=== PATIENT | female | born 1960 | race Caucasian/White ===

== ENCOUNTER 2020-05-06 09:38 | Outpatient (CLI) | payer OTHER, SELFPAY ==
--- NOTE | ~2020-05-06 | US_ITS ---
EXAMINATION:US venous doppler LE RT INDICATION:Right calf pain and swelling TECHNIQUE: Multiple grayscale, color flow and Doppler images of the right lower extremity deep venous systems were obtained and reviewed. COMPARISON:07/07/2012 FINDINGS: The common femoral, superficial femoral and popliteal veins demonstrate normal respiratory variation, augmentation and compressibility. Color flow is also seen within the posterior tibial, pe roneal, greater saphenous and profunda veins. IMPRESSION: 1: No lower extremity deep venous thrombosis. Reviewed, dictated and finalized at location B.
== END 2020-05-06 09:39 | disposition home or self-care (01) ==
PROVIDERS: Visit Provider Podiatrist Foot & Ankle Surgery
DX: M79.89 Other specified soft tissue disorders (principal)
CPT/HCPCS: 93971

== ENCOUNTER 2020-08-22 14:26 | Emergency (ER) | payer OTHER, SELFPAY ==
--- NOTE | ~2020-08-22 | CT_ITS ---
EXAMINATION: CTA chest PE protocol DATE: 08/22/2020 15:42 INDICATION: Shortness of breath. COVID positive. TECHNIQUE: Computed tomography (CT) pulmonary angiogram of the chest was performed with 100 mL Omnipa que-350 intravenous contrast. Additional 3D reconstructions utilizing coronal maximum intensity proje ction (MIP) were performed. Automated exposure control and iterative reconstruction technique were em ployed. The dose-length product was 225.87 mGy-cm. COMPARISON: None FINDINGS: Excellent contrast opacification of the pulmonary arteries. There is mild streak artifact from dense contrast in the superior vena cava and right atrium. Mild scattered respiratory motion artifact at th e lung bases which does not significantly limit evaluation. No pulmonary embolism. Bilateral patchy g roundglass opacities most prominent in the dependent bilateral lower lobes with appearance most suspi cious for COVID pneumonia. No pleural effusion or pneumothorax. Heart size is normal. No pericardial effusion. Thoracic aorta is normal in caliber with no dissection. No pathologically enlarged thoracic lymphadenopathy. A few small calcified gallstones in the dependent aspect of the normal-appearing ga llbladder. No wall thickening or pericholecystic inflammatory change to suggest acute cholecystitis. Mild pectus excavatum. Bones are otherwise unremarkable. IMPRESSION: 1. No pulmonary embolus. 2. Patchy groundglass opacities most prominent in the bilateral lower lobes with appearance most sugg estive of COVID pneumonia. 3. Cholelithiasis. Reviewed, dictated and finalized at location A. IMPRESSION: 1. No pulmonary embolus. 2. Patchy groundglass opacities most prominent in the bilateral lower lobes wit h appearance most suggestive of COVID pneumonia. 3. Cholelithiasis.
--- NOTE | ~2020-08-22 | XR_ITS ---
EXAMINATION: XR chest 1V portable INDICATION: Chest pain, COVID 19 positive TECHNIQUE: Portable AP chest at 1432 hours COMPARISON: 11/26/2018 FINDINGS: There are patchy airspace opacities of the mid and lower lung zones. Scarring is noted in t he lung apices. There is no pleural effusion or pneumothorax. The cardiomediastinal silhouette is nor mal. IMPRESSION: 1. Airspace opacities of the mid and lower lung zones, consistent with COVID 19 pneumonia given patie nt's clinical history. Reviewed, dictated and finalized at location A. IMPRESSION: 1. Airspace opacities of the mid and lower lung zones, consistent with COVID 19 pneumonia given patient's clinical history.
--- NOTE | 2020-08-22 14:27 | ECG_ITS ---
Measurements Intervals [place] Rate: 78 P: 57 VT: 191 QRS: 12 QRSD: 81 T: 76 QT: 363 QTc: 415 Interpretive Statements SINUS RHYTHM BASELINE ARTIFACT- II, III, AVF, V1, V3-V6 NORMAL ECG Electronically Signed On 08-22-2020 18:01:06 CDT by Ilya Pettit D.O.
[2020-08-22 14:29] VITALS: BP 144/93; PULSE 80; RESP 18; TEMP 36.8; O2SAT 96
--- NOTE | 2020-08-22 14:34 | ED.CHESTPAIN ---
HPI - Chest Pain General Chief Complaint: Chest Pain Stated Complaint: covid +/chest pain. r/o dvt Time Seen by Provider: 08/22/20 14:34 History of Present Illness HPI narrative: 60 yo female w/ h/o DVT/PE presents to the ED for chest heaviness and SOB. She was diagnosed wtih COVID-19 1 week ago. She has had a severe cough since that time.Increasing chest heaviness and SOB over the past few days. She has h/o unprovoked PE and she says this feels similar. Additionally she has had headaches, nausea, and body aches. Related Data Home Medications Medication Instructions Recorded Confirmed No Home Medications 03/28/19 Allergies Allergy/AdvReac Type Severity Reaction Status Date / Time sumatriptan Allergy Mild THROAT Verified 08/22/20 14:51 SWELLING prochlorperazine Allergy Unknown Unknown Verified 08/22/20 14:51 [From Compazine] METOCLOPRAMIDE HCL Allergy Mild Other Uncoded 03/28/19 10:14 KETOROLAC TROMETHAMINE Allergy Unknown Other Uncoded 03/28/19 10:14 PROCHLORPERAZINE EDISYLATE Allergy Unknown Other Uncoded 03/28/19 10:14 PROCHLORPERAZINE MALEATE Allergy Unknown Other Uncoded 03/28/19 10:14 SUMATRIPTAN SUCCINATE Allergy Unknown Other Uncoded 03/28/19 10:14 Review of Systems Review of Systems: All systems reviewed & are unremarkable except as noted in HPI and below Constitutional: Constitutional: Reports as per HPI Eyes: Eyes: Reports no additional eye complaints ENT: Denies dizziness and Denies sore throat Cardiovascular: Cardiovascular: Reports as per HPI Respiratory: Respiratory: Reports as per HPI Gastrointestinal: Gastrointestinal: Reports as per HPI Genitourinary: Genitourinary: Reports no additional female genitourinary complaints Musculoskeletal: Musculoskeletal: Reports as per HPI Neurologic: Reports as per HPI [facility] Past Medical History Medical History Chondromalacia of right patellofemoral joint Iliotibial band syndrome of right side Pulmonary embolism Shortness of breath SVT (supraventricular tachycardia) Tarsal tunnel syndrome of both lower extremities Vision abnormalities Weight gain Surgical History Surgical History History of carpal tunnel release Family History Family History Other Arthritis Cancer Diabetes mellitus Heart disease Hypertension Nerve disorder Parkinson disease Social History Social History Smoking status: Never smoker Alcohol intake: current Alcohol use details: Occasional Gender identity (if verbalized by the patient): Female Exam Const: General: healthy appearing, no acute distress and alert Orientation/consciousness: patient oriented x3 HENMT: Head: normal to inspection Neck: Neck: normal visual inspection Resp: Effort & Inspection: normal respiratory effort Auscultation: crackles bilateral in the lower lung deutsch Cardio: Jugular venous distension: no JVD Rate: regular rate Rhythm: regular rhythm Heart sounds: no murmurs GI: Inspection: non-distended GI Palp: Yes Soft to palpation and No Tenderness to palpation present (GI) Skin: General skin exam: normal color Neuro: General: patient oriented x3 and moves all extremities Speech: normal speech Extrem: General: normal to inspection and no edema Other: No calf tenderness Psych: Appearance: well kempt Affect: normal affect Course Vital Signs Vital signs: Vital Signs Temperature 36.8 C 08/22/20 14:29 Pulse Rate 80 08/22/20 14:29 Respiratory Rate 18 08/22/20 14:29 Blood Pressure 144/93 H 08/22/20 14:29 Pulse Oximetry 96 08/22/20 14:29 Temperature 36.8 C 08/22/20 14:29 Pulse Rate 87 08/22/20 16:38 Respiratory Rate 16 08/22/20 16:38 Blood Pressure 134/82 08/22/20 16:38 Pulse Oximetry 96 0
[2020-08-22 14:56] LABS: Basophils Percent Auto 0.2 % (0.2-1.2); Hematocrit 41.1 % (37.0-47.0); Hemoglobin 13.3 g/dL (12.0-15.0); Immature Granulocyte Absolute 0.04 K/mm3 (0.00-0.031); Immature Granulocyte Percent A 0.5 % (0-0.5); Lymphocytes Absolute Auto 0.98 K/mm3 (0.9-3.2); Lymphocytes Percent Auto 12.1 % (18.3-44.2); Mean Corpuscular HGB Conc 32.4 g/dl (32-36); Mean Corpuscular Volume 80.4 fl (80-100); Mean Platelet Volume 9.9 fl (7.4-10.4); Monocytes Absolute Auto 0.2 K/mm3 (0.1-0.6); Neutrophils Absolute Auto 6.8 K/mm3 (1.3-6.7); Neutrophils Percent Auto 84.2 % (45.5-73.1); Platelet Count Result 232 k/mm3 (150-375); Red Blood Count 5.11 M/mm3 (4.2-5.4); Red Cell Distribution Width 13.4 % (11.5-14.5); White Blood Count 8.1 K/mm3 (4.5-10.0)
[2020-08-22 15:06] LABS: Anion Gap 9 mmol/L (8-16); Blood Urea Nitrogen 13 mg/dL (7-17); Calcium 9.3 mg/dL (8.4-10.2); Carbon Dioxide 25 mmol/L (22-30); Chloride 105 mmol/L (98-107); Estimated CRCL calculation 97 ml/min; Estimated Glomerular Filt Rate > 60; Glucose 142 mg/dL (65-110); Potassium 4.4 mmol/L (3.4-5.0); Sodium 139 mmol/L (137-145)
[2020-08-22 15:09] LABS: INR 0.8; Prothrombin Time 11.3 Seconds (11.1-14.7)
[2020-08-22 15:18] LABS: Troponin I < 0.012 ng/mL (0.000-0.034)
[2020-08-22 16:38] VITALS: BP 134/82; PULSE 87; RESP 16; O2SAT 96
== END 2020-08-22 16:40 | disposition home or self-care (01) ==
PROVIDERS: Emergency Provider Emergency Medicine
DX: U07.1 COVID-19 (principal); J12.82 Pneumonia due to coronavirus disease 2019; Z86.711 Personal history of pulmonary embolism; K80.20 Calculus of gallbladder without cholecystitis without obstruction
CPT/HCPCS: 36415; 71045; 71275; 80048; 84484; 85025; 85610; 85730; 93005; 99284; Q9967

== ENCOUNTER → 2020-12-09 07:37 | Outpatient (CLI) | payer OTHER, SELFPAY ==
--- NOTE | ~2020-12-09 | XR_ITS ---
EXAMINATION: XR knee RT 3V DATE: 12/09/2020 08:07 INDICATION: Right knee pain TECHNIQUE: Three views of the right knee were obtained. COMPARISON: 03/28/2019 FINDINGS: Alignment is normal. No fracture or osteochondral lesion. There is mild tricompartmental os teoarthritis characterized by tiny marginal osteophytes. No joint effusion/synovitis. Soft tissues a re unremarkable. IMPRESSION: 1. Mild osteoarthritis without acute osseous abnormality. Reviewed, dictated and finalized at location B.
--- NOTE | ~2020-12-09 | XR_ITS ---
EXAMINATION: XR hip RT 2V w AP pelvis INDICATION: Right hip pain TECHNIQUE: AP view the pelvis and two views of the right hip are obtained. COMPARISON: None available FINDINGS: Bone alignment is normal. There is no fracture. There are phleboliths of the pelvis. Mild o steitis pubis is noted. IMPRESSION: 1. No acute osseous abnormality. Reviewed, dictated and finalized at location B.
== END ==
PROVIDERS: PCP Family Medicine; Visit Provider Family Medicine
DX: M25.561 Pain in right knee (principal); M17.11 Unilateral primary osteoarthritis, right knee
CPT/HCPCS: 73502; 73562

== ENCOUNTER 2021-02-24 09:52 | Outpatient (CLI) | payer OTHER, SELFPAY ==
--- NOTE | 2021-02-24 | ECG_ITS ---
Measurements Intervals [place] Rate: 76 P: 69 MI: 195 QRS: 50 QRSD: 86 T: 76 QT: 384 QTc: 432 Interpretive Statements SINUS RHYTHM MINIMAL Q WAVES- ANTEROLAT/HIGH LAT LEADS BASELINE ARTIFACT- I, III, AVL BORDERLINE ECG Electronically Signed On 02-24-2021 10:43:45 REGISTERED PUBLIC HEALTH NURSE by Ilya Pettit D.O.
== END 2021-02-24 09:53 | disposition home or self-care (01) ==
LOC: ANHCARD 09:56
PROVIDERS: PCP Family Medicine; Visit Provider Podiatrist Foot & Ankle Surgery
DX: R03.0 Elevated blood-pressure reading, without diagnosis of hypertension (principal)
CPT/HCPCS: 93005

== ENCOUNTER → 2021-04-25 08:47 | Outpatient (CLI) | payer OTHER, SELFPAY ==
--- NOTE | ~2021-04-25 | US_ITS ---
EXAMINATION: US thyroid EXAM DATE: 04/25/2021 09:58 INDICATION: Nontoxic goiter, unspecified. TECHNIQUE: Multiple grayscale and Doppler images of the thyroid were obtained (by a technologist who performed the scan) and subsequently reviewed. Individual nodules and recommendations may be reporte d in accordance with TI-RADS system as designated by the 2017 ACR White Paper TI-RADS committee. The re is no prior study for comparison. FINDINGS: The right thyroid lobe measures 4.4 x 1.7 x 1.9 cm, the left measuring 5.4 x 1.0 x 2.1 cm. Mildly dif fusely heterogeneous thyroid echogenicity. Left thyroid lobe category TR 4 measuring 1.5 x 0.8 x 0.9 cm. This 1.5 cm is the size threshold for r ecommending ultrasound-guided FNA. Right thyroid lobe category TR 4 nodule measuring up to 6 mm. IMPRESSION: Several thyroid nodules, largest in the left thyroid lobe could be considered for ultraso und-guided FNA. Reviewed, dictated and finalized at location G. IMPRESSION: Several thyroid nodules, largest in the left thyroid lobe could be considered for ultrasound-guided FNA.
== END ==
PROVIDERS: PCP Family Medicine; Visit Provider Internal Medicine Endocrinology, Diabetes & Metabolism
DX: E04.2 Nontoxic multinodular goiter (principal)
CPT/HCPCS: 76536

== ENCOUNTER 2021-05-26 10:05 | Outpatient (CLI) | payer OTHER, SELFPAY ==
--- NOTE | ~2021-05-26 | US_ITS ---
EXAMINATION: US venous doppler LE RT DATE: 05/26/2021 10:35 INDICATION: Right lower limb pain and swelling. Chest pain. TECHNIQUE: Grayscale ultrasound images without and with compression and Doppler ultrasound images of the right lower extremity veins were obtained. COMPARISON: 05/06/2020 FINDINGS: The visualized portions of right common femoral vein, profunda (deep) femoral vein, femoral vein, pop liteal vein, peroneal trunk, posterior tibial veins, peroneal veins, gastrocnemius vein and greater s aphenous vein outflow are patent. IMPRESSION: 1. No deep venous thrombosis in the right lower limb. Reviewed, dictated and finalized at location A.
== END 2021-05-26 10:06 | disposition home or self-care (01) ==
LOC: ANHIMG 10:08
PROVIDERS: PCP Family Medicine; Visit Provider Podiatrist Foot & Ankle Surgery
DX: M79.661 Pain in right lower leg (principal)
CPT/HCPCS: 93971

== ENCOUNTER → 2021-06-01 09:17 | Outpatient (CLI) | payer OTHER, SELFPAY ==
--- NOTE | ~2021-06-01 | CT_ITS ---
EXAMINATION: CTA chest PE protocol DATE: 06/01/2021 10:00 INDICATION: Dyspnea. TECHNIQUE: Computed tomography angiography (CTA) of the chest was performed with 100 mL Omnipaque-350 intravenous contrast timed to evaluate the pulmonary arteries. Coronal maximum intensity projection 3D-reconstructions were created by the technologist. Automated exposure control and iterative reconst ruction technique were employed. The dose-length product was 331.58 mGy-cm. COMPARISON: Chest CT 08/22/2020, 06/04/08, abdomen MRI 05/22/2008 FINDINGS: There is mild scarring at the lung apices. The lungs demonstrate dependent atelectasis. The re is mild atelectasis in lingula. No pleural effusion. The heart size is normal. No pericardial effu jason. There is no pulmonary embolus. Partially visualized is a 7.9 cm mass of left hepatic lobe that measured 4.6 cm on 06/04/2008, consistent with a hemangioma on prior MRI. There are gallstones in the gallbladder, which is normal in size. There is mild pectus excavatum. There is mild thoracic spondylo sis. IMPRESSION: 1. No pulmonary embolus. Reviewed, dictated and finalized at location A. IMPRESSION: 1. No pulmonary embolus.
[2021-06-01 09:51] LABS: Estimated Glomerular Filt Rate > 60
== END ==
PROVIDERS: PCP Family Medicine; Visit Provider Family Medicine
DX: R79.1 Abnormal coagulation profile (principal)
CPT/HCPCS: 71275; Q9967

== ENCOUNTER 2021-12-25 08:13 | Emergency (ER) | payer OTHER, SELFPAY ==
--- NOTE | 2021-12-25 08:14 | ED.GENADULT ---
HPI - General Adult General Chief complaint: Urogenital-Female Stated complaint: bladder infection Time Seen by Provider: 12/25/21 08:14 Source: patient Mode of arrival: ambulatory Limitations: no limitations History of Present Illness HPI narrative: 61-year-old female patient presents to the [facility] with complaints of urinary symptoms for the past 3 days. Patient states that when her symptoms started her symptoms were urgency, frequency and burning when urinating. Patient states she was trying to treat herself with cranberry juice or water to help with the symptoms. Patient states the symptoms got worse yesterday and she was having chills, low back pain and just overall not feeling well. Patient is type 2 diabetic that is treated with metformin. Patient states she typically does not check her sugars. Patient denies any fevers that she is aware of. Denies any confusion. Related Data Home Medications Medication Instructions Recorded Confirmed metformin 500 mg tablet,extended 500 mg PO DAILY 12/25/21 12/25/21 release 24 hr progesterone micronized 100 mg 100 mg PO DAILY 12/25/21 12/25/21 capsule Allergies Allergy/AdvReac Type Severity Reaction Status Date / Time prochlorperazine AdvReac Mild Muscle Verified 12/25/21 08:38 [From Compazine] Spasms sumatriptan AdvReac Mild Nausea Verified 12/25/21 08:38 Review of Systems Review of Systems: CONSTITUTIONAL: Denies fever, positive chills, denies sweats. EYES: Denies visual changes, redness, or discharge. ENT: Denies rhinorrhea, congestion, sore throat, or otalgia. CARDIOVASCULAR: Denies chest pain, palpitations, or edema. RESPIRATORY: Denies cough or dyspnea. GASTROINTESTINAL: Denies abdominal pain, positive nausea, denies vomiting, or diarrhea. GENITOURINARY: Positive dysuria denies hematuria. SKIN: Denies rash or itching. MUSCULOSKELETAL: Positive low back pain, denies joint pain, or myalgia. NEUROLOGIC: Denies headache, numbness, or weakness. PSYCHIATRIC: Denies anxiety or depression. [facility] Past Medical History Medical History Chondromalacia of right patellofemoral joint Chronic pelvic pain in female Iliotibial band syndrome of right side Pulmonary embolism Shortness of breath SVT (supraventricular tachycardia) Tarsal tunnel syndrome of both lower extremities Vision abnormalities Weight gain Surgical History Surgical History H/O sinus surgery H/O: hysterectomy History of bladder surgery bladder tie up History of carpal tunnel release Family History Family History Grandparent Breast cancer Other Arthritis Cancer Diabetes mellitus Heart disease Hypertension Nerve disorder Parkinson disease Social History Social History Smoking status: Never smoker Alcohol intake: never Substance use: never Gender identity (if verbalized by the patient): Female Sexual Orientation (if Verbalized by the Patient): Straight or Heterosexual Comments At the time of my signature I agree with nursing past medical history, surgical, social, and family history. There is no relevant family history pertinent to the presenting complaint. Exam Narrative: GENERAL: Well-appearing, well-nourished, and in no acute distress. HEAD: Normocephalic, atraumatic. EYES: PERRLA and EOMI. ENT: Nares clear, no rhinorrhea or epistaxis. Mucous membranes moist. NECK: Supple. No lymphadenopathy CHEST: Clear to auscultation. No respiratory distress. HEART: Regular rate and rhythm. No murmur heard. Normal peripheral pulses. ABDOMEN: Soft, nontender, nondistended, normal active bowel sounds. Bilateral suprapubic pain on palpation. Bilateral CVS tenderness on percussion. EXTREMITIES: Normal range of motion. No edema. SKIN: Warm, dry, no rash. NEUR
[2021-12-25 08:30] VITALS: BP 132/72; PULSE 91; RESP 16; TEMP 36.9; O2SAT 99
[2021-12-25 08:37] LABS: Glucose Point of Care 99 mg/dl (65-105)
== END 2021-12-25 08:46 | disposition home or self-care (01) ==
PROVIDERS: Emergency Provider Nurse Practitioner Family; PCP Family Medicine
DX: N39.0 Urinary tract infection, site not specified (principal); Z86.711 Personal history of pulmonary embolism
CPT/HCPCS: 81003; 82948; 87077; 87086; 87186; 99213; G0463

== ENCOUNTER 2022-01-11 09:14 | Emergency (ER) | payer OTHER, SELFPAY ==
--- NOTE | ~2022-01-11 | XR_ITS ---
XR foot RT min 3V DATE: 01/11/2022 09:39 INDICATION: Right lateral foot pain following a fall yesterday TECHNIQUE: 4 views COMPARISON: None FINDINGS: There is a small cortical avulsion fracture from the distal lateral aspect of the calcaneus , with overlying soft tissue swelling. No other fracture or dislocation, periosteal reaction or bone destruction. There is calcification along the distal Achilles tendon. IMPRESSION: Cortical avulsion fracture of distal lateral aspect of calcaneus, with overlying soft tis isabela swelling Reviewed, dictated and finalized at location B. NG NURSE IMPRESSION: Cortical avulsion fracture of distal lateral aspect of calcaneus, w ith overlying soft tissue swelling
--- NOTE | ~2022-01-11 | XR_ITS ---
XR ankle RT min 3V DATE: 01/11/2022 09:39 INDICATION: Lateral right ankle pain following a fall yesterday TECHNIQUE: 4 views COMPARISON: None FINDINGS: There is calcification along the distal Achilles tendon. No fracture or dislocation of the ankle or disruption of the ankle mortise. No periosteal reaction or bone destruction or significant soft tissue swelling is detected. IMPRESSION: No fracture or dislocation Reviewed, dictated and finalized at location B. EY HAND IMPRESSION: No fracture or dislocation
[2022-01-11 09:23] VITALS: BP 135/71; PULSE 75; RESP 16; TEMP 36.7; O2SAT 98
--- NOTE | 2022-01-11 09:35 | ED.LOWEXIN ---
HPI - Extremity Injury (Lower) General Chief Complaint: Extremity Injury, Lower Stated Complaint: Right Ankle Pain Time Seen by Provider: 01/11/22 09:35 Source: patient Mode of arrival: ambulatory Limitations: no limitations History of Present Illness HPI Narrative: Ms. Delatorre is a 61-year-old female patient presenting to the clinic today with complaints of right ankle and foot pain since last night. She reports she may have twisted her ankle and foot last night but she is unaware of what exactly happened. States that her slipper may have half way came off and she tripped. She denies falling -hitting her head or any neck pain. Related Data Home Medications Medication Instructions Recorded Confirmed metformin 500 mg tablet,extended 500 mg PO DAILY 12/25/21 12/25/21 release 24 hr Allergies Allergy/AdvReac Type Severity Reaction Status Date / Time prochlorperazine AdvReac Mild Muscle Verified 01/11/22 09:42 [From Compazine] Spasms sumatriptan AdvReac Mild Nausea Verified 01/11/22 09:42 Review of Systems Review of Systems: Pertinent positives per HPI. Patient denies any fever, chills, rash, headache, visual changes, dizziness, cough, runny nose, sore throat, shortness of breath, chest pain, palpitations, nausea, vomiting, diarrhea, constipation, abdominal pain, or any urinary issues. [facility] Past Medical History Medical History Chondromalacia of right patellofemoral joint Chronic pelvic pain in female Iliotibial band syndrome of right side Pulmonary embolism Shortness of breath SVT (supraventricular tachycardia) Tarsal tunnel syndrome of both lower extremities Vision abnormalities Weight gain Surgical History Surgical History H/O sinus surgery H/O: hysterectomy History of bladder surgery bladder tie up History of carpal tunnel release Family History Family History Grandparent Breast cancer Other Arthritis Cancer Diabetes mellitus Heart disease Hypertension Nerve disorder Parkinson disease Social History Social History Smoking status: Never smoker Alcohol intake: never Substance use: never Gender identity (if verbalized by the patient): Female Sexual Orientation (if Verbalized by the Patient): Straight or Heterosexual Comments At the time of my signature, I reviewed and agree with the nursing past medical, surgical, social, and family history. There is no relevant family history pertinent to the patient complaint. Exam Narrative: General: Well-developed, well nourished, in no apparent distress Head: Normocephalic, atraumatic. Cardio: Regular rate and rhythm, s1 and s2 normal, no murmur appreciated. Resp: Clear to auscultation bilaterally, no rhonchi, rales, wheezing or rubs. Musculoskeletal: No deformity, tenderness, bruising, and swelling to the right lateral dorsal foot /ankle, limited range of motion due to pain, pain with dorsal flexion and plantar flexion against resistance, muscle strength strong and equal, peripheral pulse strong, no cyanosis, limping gait and station Course Course Emergency Course: Portions of this record may have been created with voice recognition software. Level of Care: Express Care Visit Vital Signs Vital signs: Vital Signs Temperature 36.7 C 01/11/22 09:23 Pulse Rate 75 01/11/22 09:23 Respiratory Rate 16 01/11/22 09:23 Blood Pressure 135/71 01/11/22 09:23 Pulse Oximetry 98 01/11/22 09:23 Oxygen Delivery Room Air 01/11/22 09:23 Temperature 36.7 C 01/11/22 09:23 Pulse Rate 75 01/11/22 09:23 Respiratory Rate 16 01/11/22 09:23 Blood Pressure 135/71 01/11/22 09:23 Pulse Oximetry 98 01/11/22 09:23 Oxygen Delivery Room Air 01/11/22 09:23 Vital
== END 2022-01-11 10:05 | disposition home or self-care (01) ==
PROVIDERS: Emergency Provider Nurse Practitioner Family; PCP Family Medicine
DX: S92.034A Nondisplaced avulsion fracture of tuberosity of right calcaneus, initial encounter for closed fracture (principal); S93.411A Sprain of calcaneofibular ligament of right ankle, initial encounter; X58.XXXA Exposure to other specified factors, initial encounter; Z86.711 Personal history of pulmonary embolism
CPT/HCPCS: 73610; 73630; 99214; G0463

== ENCOUNTER → 2022-02-10 07:52 | Outpatient (CLI) | payer OTHER, SELFPAY ==
--- NOTE | ~2022-02-10 | MR_ITS ---
MRI of the brain Clinical History: Facial neurosensory disorder Technique: Axial and sagittal T1-weighted images were acquired. These were followed by axial T2-weigh rubi, diffusion weighted, gradient, and FLAIR images. Following intravenous administration of 14 cc Mu ltiHance gadolinium, T1-weighted fat-sat imaging was performed in the axial and coronal planes. Findings: No abnormal signal seen in the brain parenchyma. No acute infarct, intracranial hemorrhage, or mass lesion. Ventricles and subarachnoid spaces are unremarkable. Orbits are unremarkable. Paranasal sinuses and m astoid air cells are clear. Major intracranial flow voids appear intact. Sagittal midline structures are intact. No abnormal postcontrast enhancement identified. IMPRESSION: Unremarkable exam. Reviewed, dictated and finalized at location M. OR DIGITAL DESIGNER IMPRESSION: Unremarkable exam.
--- NOTE | ~2022-02-10 | MR_ITS ---
MRI of the orbits CLINICAL HISTORY: Facial nerve disorder TECHNIQUE: Axial T1 weighted, T1 fat sat, and T2 fat-sat images, coronal T1-weighted and T2 fat-sat i mages were acquired through the orbits. Following intravenous administration of 14 cc MultiHance gado linium, T1-weighted fat-sat imaging was performed in the axial and coronal planes. FINDINGS: Eye globes are symmetric in size and position. Extraocular muscles are unremarkable. Optic nerve sheath complexes are unremarkable. No intraorbital mass or signal abnormality seen. Optic chias m unremarkable. Paranasal sinuses and mastoid air cells are clear. No abnormal soft tissue mass identified. No abnorm al postcontrast enhancement identified. IMPRESSION: Unremarkable MRI of the orbits. Reviewed, dictated and finalized at location . [employer]ACT ASSOCIATE
== END ==
PROVIDERS: PCP Family Medicine; Visit Provider Internal Medicine Endocrinology, Diabetes & Metabolism
DX: G51.9 Disorder of facial nerve, unspecified (principal)
CPT/HCPCS: 70543; 70553; A9577

== ENCOUNTER 2022-09-14 05:51 | Emergency (ER) | payer OTHER, SELFPAY ==
[2022-09-14 05:55] VITALS: BP 152/88; PULSE 83; RESP 14; TEMP 36.7; O2SAT 100
[2022-09-14] MEDS: predniSONE 20 MG TABLET 40 MG PO (06:32)
--- NOTE | 2022-09-14 06:33 | ED.EYEPROB ---
HPI - Eye Problem General Chief complaint: Eye Problems Stated complaint: pink eye Time Seen by Provider: 09/14/22 06:01 History of Present Illness HPI Narrative: 62-year-old female presenting with bilateral eyelid swelling and itching, about a week ago she was diagnosed with pinkeye and started on eyedrops by her doctor, after several days of using the drops she was noticing more swelling and itching to her eyelids, her doctor thought this may be an allergy so she stopped the drops and put her on a different sort of eyedrops, but this time her pinkeye/irritation/discharge had largely resolved, however she was having such bad swelling to her eyelids with this new eyedrop that she came in today. She states only thing that seems to help her feel better as the prednisolone drops Related Data Home Medications Medication Instructions Recorded Confirmed metformin 500 mg tablet,extended 500 mg PO DAILY 12/25/21 09/14/22 release 24 hr moxifloxacin 0.5 % eye drops 1 drp EACH EYE TID 09/14/22 09/14/22 prednisolone acetate 1 % eye 1 drp EACH EYE BID 09/14/22 09/14/22 drops,suspension Allergies Allergy/AdvReac Type Severity Reaction Status Date / Time prochlorperazine AdvReac Mild Muscle Verified 06/06/22 08:26 [From Compazine] Spasms sumatriptan AdvReac Mild Nausea Verified 06/06/22 08:26 Review of Systems Review of Systems: CONST: No fever. HEENT: Extremely itchy and swollen eyelids SKIN: Rash to eyelids PMFSH Past Medical History Medical History Chondromalacia of right patellofemoral joint Chronic pelvic pain in female Iliotibial band syndrome of right side Pulmonary embolism Shortness of breath SVT (supraventricular tachycardia) Tarsal tunnel syndrome of both lower extremities Vision abnormalities Weight gain Surgical History Surgical History H/O sinus surgery H/O: hysterectomy History of bladder surgery bladder tie up History of carpal tunnel release Family History Family History Grandparent Breast cancer Other Arthritis Cancer Diabetes mellitus Heart disease Hypertension Nerve disorder Parkinson disease Social History Social History Smoking status: Never smoker Alcohol intake: never Substance use: never Living arrangements: with family Occupation/Education: retired Gender identity (if verbalized by the patient): Female Sexual Orientation (if Verbalized by the Patient): Straight or Heterosexual Exam Narrative: EXAMINATION OF ORGAN SYSTEMS/BODY AREAS: Constitutional: Vital signs per nursing GENERAL:[No acute distress, non-toxic appearing.] HEAD: Normal with no signs of head trauma. EYES: EOMI, slightly injected conjunctiva, no active discharge, extremely swollen edematous erythematous eyelids bilaterally ENT: Hearing grossly intact LUNGS: Nonlabored breathing. HEART: [Regular rate and rhythm] ABD: [Soft], [tender to palpation] EXT: Normal range of motion SKIN: edematous erythematous eyelids bilaterally NEURO: [Alert and oriented x 3. No gross focal sensory or strength deficits.] PSYCH: Normal affect Course Vital Signs Vital signs: Vital Signs Temperature 98.0 F 09/14/22 05:55 Pulse Rate 83 09/14/22 05:55 Respiratory Rate 14 09/14/22 05:55 Blood Pressure 152/88 H 09/14/22 05:55 Pulse Oximetry 100 09/14/22 05:55 Oxygen Delivery Room Air 09/14/22 05:55 Temperature 98.0 F 09/14/22 05:55 Pulse Rate 83 09/14/22 05:55 Respiratory Rate 14 09/14/22 05:55 Blood Pressure 152/88 H 09/14/22 05:55 Pulse Oximetry 100 09/14/22 05:55 Oxygen Delivery Room Air 09/14/22 05:55 MDM - Eye Problem MDM Narrative Medical decision making narrative: 2-year-old female presenting with bilateral eye
== END 2022-09-14 07:20 | disposition home or self-care (01) ==
PROVIDERS: Emergency Provider Emergency Medicine; PCP Family Medicine
DX: H02.89 Other specified disorders of eyelid (principal); T49.5X5A Adverse effect of ophthalmological drugs and preparations, initial encounter; Z86.711 Personal history of pulmonary embolism; Z90.710 Acquired absence of both cervix and uterus
CPT/HCPCS: 99283; J7512

== ENCOUNTER 2023-08-06 06:12 | Day surgery (SDC) | payer OTHER, SELFPAY ==
[2023-07-04 14:01] VITALS: BMI 24.6
[2023-07-27 10:15] VITALS: BMI 24.1
--- NOTE | 2023-07-31 13:54 | PM.HPGS ---
History of Present Illness History of Present Illness Consent: Risks, benefits, and alternatives have been discussed and questions answered. Patient agrees to proceed with procedure. Chief complaint: Dysphagia, Functional Dyspepsia, Constipation Narrative: Marianna Delatorre is a 63 year old female who has had trouble swallowing for years. Reports dysphagia is high up in the neck area. She has been evaluated by ENT in [place] (does not remember name) prior to Covid and nasal scope preformed with no etiology found. States dysphagia is stable with no new changes. states she does take small bites and chews her food well to avoid things getting caught. She denies any coughing or dysphagia with liquids. when she does swallow she does report increase pressure in her mid chest area. She denies any odynophagia. For the past 6 months she has had burning sensation in her stomach this is worse after eating. She denies any associated nausea or vomiting. she does report a history of reflux in the past and has tried omeprazole, Pepcid, and Nexium over the years with no relief in symptoms. She also reports a history of chronic constipation and lower abdominal bloating. she has a history of polyps. Review of Systems Review of Systems: All systems reviewed & are unremarkable except as noted in HPI and below PMFSH Past Medical History Medical History Abdominal bloating Atypical chest pain Chondromalacia of right patellofemoral joint Chronic pelvic pain in female Constipation Dysphagia Globus sensation History of colon polyps Hoarseness Iliotibial band syndrome of right side Pulmonary embolism Shortness of breath Stomach burning SVT (supraventricular tachycardia) Tarsal tunnel syndrome of both lower extremities Vision abnormalities Weight gain Surgical History Surgical History H/O eye surgery H/O sinus surgery H/O: hysterectomy History of bladder surgery bladder tie up History of carpal tunnel release Family History Family History Grandparent Breast cancer Other Arthritis Cancer Diabetes mellitus Heart disease Hypertension Nerve disorder Parkinson disease Social History Social History Smoking status: Never smoker Alcohol intake: current Drinks per week: 0 Alcohol use details: RARE Substance use: never Substance use type: does not use Current Housing: Decline to Answer Concerned About Future Housing: Decline to Answer Difficulty Paying Gas/Electric Bills: Decline to Answer Difficulty Paying for Meds: Decline to Answer Currently Unemployed: Decline to Answer Difficulty w/ Childcare or Family Care: Decline to Answer Living arrangements: with family Occupation/Education: retired Gender identity (if verbalized by the patient): Female Sexual Orientation (if Verbalized by the Patient): Straight or Heterosexual Spiritual care concerns: No Meds Home Medications and Allergies Home Medications Medication Instructions Recorded Confirmed Type metformin 500 mg tablet,extended 500 mg PO DAILY 12/25/21 08/06/23 History release 24 hr fezolinetant 45 mg tablet (Veozah) 45 mg PO DAILY 06/12/23 08/06/23 History valacyclovir 500 mg tablet 500 mg PO Q12H 06/12/23 08/06/23 History B-complex with vitamin C 1 cap PO DAILY 06/20/23 08/06/23 History aspirin 81 mg tablet,delayed 81 mg PO DAILY 06/20/23 08/06/23 History release (Adult Low Dose Aspirin) calcium phosphate,dibasic 100 1 tablet PO DAILY 07/27/23 08/06/23 History mg-vitamin D3 3 mcg tablet magnesium glycinate 100 mg tablet 100 mg PO DAILY 07/27/23 08/06/23 History turmeric 400 mg capsule 400 mg PO DAILY 07/27/23 08/06/23 History Allergies Allergy/AdvReac Type Severity Reaction Status Date / Time prochlorperaz
[2023-08-06 07:10] VITALS: BMI 24.0
[2023-08-06 07:15] LABS: Glucose Point of Care 106 mg/dl (65-105)
--- NOTE | 2023-08-06 07:42 | WPDANESEPPF ---
Anes - Initial Pre Proc Eval Procedure: Operation Date: 08/06/23 08:00 Proposed Procedures p Esophagogastroduodenoscopy - Jon Ribeiro MD s Diagnostic Colonoscopy - Jon Ribeiro MD Date/Time: 08/06/23 07:42 Surgeon: Jon Ribeiro MD Pre Op Diagnosis: Dysphagia, Functional Dyspepsia, Constipation Patient Data Age: 63 Gender: F Height: 1.7 m Weight: 69.6 kg Allergies Allergy/AdvReac Type Severity Reaction Status Date / Time prochlorperazine AdvReac Mild Muscle Verified 08/06/23 06:44 [From Compazine] Spasms Home Medications Medication Instructions Recorded Confirmed Type metformin 500 mg tablet,extended 500 mg PO DAILY 12/25/21 08/06/23 History release 24 hr fezolinetant 45 mg tablet (Veoz[place]) 45 mg PO DAILY 06/12/23 08/06/23 History valacyclovir 500 mg tablet 500 mg PO Q12H 06/12/23 08/06/23 History B-complex with vitamin C 1 cap PO DAILY 06/20/23 08/06/23 History aspirin 81 mg tablet,delayed 81 mg PO DAILY 06/20/23 08/06/23 History release (Adult Low Dose Aspirin) calcium phosphate,dibasic 100 1 tablet PO DAILY 07/27/23 08/06/23 History mg-vitamin D3 3 mcg tablet magnesium glycinate 100 mg tablet 100 mg PO DAILY 07/27/23 08/06/23 History turmeric 400 mg capsule 400 mg PO DAILY 07/27/23 08/06/23 History Laboratory Tests 08/06/23 07:06 POC Capillary Glucose 106 H mg/dl (65-105) Patient hx anesthesia problems: post op nausea/vomiting Family hx anesthesia problems: none Results Review: All pre-operative results and documents have been reviewed as part of the pre-operative evaluation. [facility] Past Medical History Medical History Abdominal bloating Atypical chest pain Chondromalacia of right patellofemoral joint Chronic pelvic pain in female Constipation Dysphagia Globus sensation History of colon polyps Hoarseness Iliotibial band syndrome of right side Pulmonary embolism Shortness of breath Stomach burning SVT (supraventricular tachycardia) Tarsal tunnel syndrome of both lower extremities Vision abnormalities Weight gain Surgical History Surgical History H/O eye surgery H/O sinus surgery H/O: hysterectomy History of bladder surgery bladder tie up History of carpal tunnel release Family History Family History Grandparent Breast cancer Other Arthritis Cancer Diabetes mellitus Heart disease Hypertension Nerve disorder Parkinson disease Social History Social History Smoking status: Never smoker Alcohol intake: current Drinks per week: 0 Alcohol use details: RARE Substance use: never Substance use type: does not use Current Housing: Decline to Answer Concerned About Future Housing: Decline to Answer Difficulty Paying Gas/Electric Bills: Decline to Answer Difficulty Paying for Meds: Decline to Answer Currently Unemployed: Decline to Answer Difficulty w/ Childcare or Family Care: Decline to Answer Living arrangements: with family Occupation/Education: retired Gender identity (if verbalized by the patient): Female Sexual Orientation (if Verbalized by the Patient): Straight or Heterosexual Spiritual care concerns: No Anes - Eval Final PreProcedure Day of Procedure 08/06/23 07:42 Patient weight: normal Heart: regular rate and rhythm Lungs: clear to auscultation Airway: Mallampati scale class II Neurological: alert and oriented Last oral intake: >/= 8 hours ASA classification: II Emergent: no Anesthetic plan: proceed Anesthesia type and monitoring: general GIVS and standard monitoring Results Review: All pre-operative results and documents have been reviewed as part of the pre-operative evaluation. Informed Consent: The patient's anesthetic plan and its attend
[2023-08-06] MEDS: LACTATED RINGERS 1,000 ML 150 ML IV CONT (07:55)
[2023-08-06 08:34] VITALS: BP 110/72; PULSE 84; RESP 15; O2SAT 98
[2023-08-06 08:44] VITALS: BP 104/73; PULSE 71; RESP 16; O2SAT 99
[2023-08-06 08:54] VITALS: BP 130/69; PULSE 67; RESP 16; O2SAT 100
--- NOTE | 2023-08-06 08:59 | WPDANESPN ---
Anes - Prog Note Post-Op Date/Time: 08/06/23 08:59 Cardiovascular status: normal Respiratory status: normal Airway patency: baseline Mental status: baseline Post-Op hydration status: normal Vital Signs: Last Vital Signs Pulse 67 08/06/23 08:54 Resp 16 08/06/23 08:54 BP 130/69 08/06/23 08:54 Pulse Ox 100 08/06/23 08:54 O2 Del Method Room Air 08/06/23 08:54 Pain Score (VAS): 0 I/O: Intake & Output 08/05/23 08/06/23 08/06/23 23:59 07:59 15:59 Intake Total 900 Balance 900 08/06/23 07:06 POC Capillary Glucose 106 H Patient Feedback: Patient satisfied with anesthetic care.
== END 2023-08-06 09:03 | disposition home or self-care (01) ==
PROVIDERS: PCP Family Medicine; Visit Provider Internal Medicine Gastroenterology
PROC: 0DJ08ZZ Inspection of Upper Intestinal Tract, Via Natural or Artificial Opening Endoscopic (ICD-10-PCS; CPT 43235; principal; 2023-08-06 08:00)
PROC: 0DJD8ZZ Inspection of Lower Intestinal Tract, Via Natural or Artificial Opening Endoscopic (ICD-10-PCS; CPT 45378; 2023-08-06 08:00)
DX: Z86.010 Personal history of colon polyps (principal); R13.19 Other dysphagia; K64.8 Other hemorrhoids; K21.9 Gastro-esophageal reflux disease without esophagitis
CPT/HCPCS: 45378; 43239

== ENCOUNTER 2023-08-06 07:00 | Outpatient (NON) | payer OTHER, SELFPAY | END 2023-08-06 07:01 | disposition home or self-care (01) | LOC: ANHLAB 08-07 07:31 | PROVIDERS: PCP Family Medicine; Visit Provider Internal Medicine Gastroenterology | DX: K21.00 Gastro-esophageal reflux disease with esophagitis, without bleeding (principal); Z87.898 Personal history of other specified conditions | CPT/HCPCS: 88305 ==

== ENCOUNTER 2023-11-21 09:02 | Emergency (ER) | payer OTHER, SELFPAY ==
[2023-11-21 09:48] VITALS: BP 130/84; PULSE 75; RESP 19; TEMP 37; O2SAT 98
--- NOTE | 2023-11-21 09:48 | ED.NECK ---
HPI - Neck Pain/Injury General Chief Complaint: Neck Pain/Injury Stated Complaint: Left Shoulder Pain Time Seen by Provider: 11/21/23 09:48 Source: patient, RN notes reviewed and old records reviewed Mode of arrival: ambulatory Limitations: no limitations History of Present Illness HPI Narrative: Patient presents with complaints of pain to the left shoulder/neck area. She reports that she woke up with this pain about 6 days ago. She has been trying ibuprofen, ice, heat, stretching. She tried to call her primary care provider and her Orthopedic, was unable to get in either 1. She presents today with complaints of increased pain with abduction of the left arm. Pain is also aggravated by turning head to the right. States that she had to sleep in a recliner last night due to pain Related Data Home Medications Medication Instructions Recorded Confirmed metformin 500 mg tablet,extended 500 mg PO DAILY 12/25/21 11/21/23 release 24 hr valacyclovir 500 mg tablet 500 mg PO Q12H 06/12/23 11/21/23 B-complex with vitamin C 1 cap PO DAILY 06/20/23 11/21/23 aspirin 81 mg tablet,delayed 81 mg PO DAILY 06/20/23 11/21/23 release (Adult Low Dose Aspirin) calcium 100 mg (as 1 tablet PO DAILY 07/27/23 11/21/23 phosphate,dibasic)-vitamin D3 3 mcg tablet magnesium glycinate 100 mg (as 100 mg PO DAILY 07/27/23 11/21/23 glycinate) tablet turmeric 400 mg capsule 400 mg PO DAILY 07/27/23 11/21/23 Allergies Allergy/AdvReac Type Severity Reaction Status Date / Time prochlorperazine AdvReac Mild Muscle Verified 11/21/23 09:20 [From Compazine] Spasms Review of Systems Review of Systems: All systems reviewed & are unremarkable except as noted in HPI and below Constitutional: Constitutional: Reports no additional constitutional complaints ENT: Reports system reviewed and no additional complaints, except as documented Cardiovascular: Cardiovascular: Reports no additional cardiovascular complaints Respiratory: Respiratory: Reports no additional respiratory complaints Gastrointestinal: Gastrointestinal: Reports no additional gastrointestinal complaints Musculoskeletal: Musculoskeletal: Reports no additional musculoskeletal complaints and Reports as per HPI [facility] Past Medical History Medical History Abdominal bloating Atypical chest pain Chondromalacia of right patellofemoral joint Chronic pelvic pain in female Constipation Dysphagia Globus sensation History of colon polyps Hoarseness Iliotibial band syndrome of right side Pulmonary embolism Shortness of breath Stomach burning SVT (supraventricular tachycardia) Tarsal tunnel syndrome of both lower extremities Vision abnormalities Weight gain Surgical History Surgical History H/O eye surgery H/O sinus surgery H/O: hysterectomy History of bladder surgery bladder tie up History of carpal tunnel release Family History Family History Grandparent Breast cancer Other Arthritis Cancer Diabetes mellitus Heart disease Hypertension Nerve disorder Parkinson disease Social History Social History Smoking status: Never smoker Alcohol intake: current Drinks per week: 0 Alcohol use details: RARE Substance use: never Substance use type: does not use Current Housing: Decline to Answer Concerned About Future Housing: Decline to Answer Difficulty Paying Gas/Electric Bills: Decline to Answer Difficulty Paying for Meds: Decline to Answer Currently Unemployed: Decline to Answer Difficulty w/ Childcare or Family Care: Decline to Answer Living arrangements: with family Occupation/Education: retired Gender identity (if verbalized by the patient): Female Sexual Orientation (if Verbalized by the Patient): Straight or Het
== END 2023-11-21 10:05 | disposition home or self-care (01) ==
PROVIDERS: Emergency Provider Nurse Practitioner Family; PCP Family Medicine
DX: M62.838 Other muscle spasm (principal); Z86.711 Personal history of pulmonary embolism; Z79.82 Long term (current) use of aspirin
CPT/HCPCS: 99213; G0463

== ENCOUNTER 2024-01-28 10:01 | Outpatient (CLI) | payer OTHER, SELFPAY ==
--- NOTE | ~2024-01-28 | US_ITS ---
EXAMINATION: US thyroid DATE: 01/28/2024 10:34 INDICATION: Frankie's thyroiditis. Goiter. Dysphagia. TECHNIQUE: Multiple ultrasound images of the thyroid were obtained. COMPARISON: Thyroid ultrasound 04/25/2021 FINDINGS: The right thyroid lobe measures 4.7 x 1.3 x 1.9 cm. The left thyroid lobe measures 5.6 x 1.1 x 2.1 c m. In the right thyroid lobe, there is a 6 mm solid, hypoechoic, wider than tall nodule with smooth margin without echogenic foci (TI-RADS TR4). In the left thyroid lobe, there is a 17 mm solid, hypoec hoic, wider than tall nodule with ill-defined margin without echogenic foci (TR4) that measured 15 mm on 04/25/21. In the left thyroid lobe, there is a 4 mm nodule. IMPRESSION: 1. Thyroid nodules. Ultrasound-guided fine-needle aspiration of the 17 mm left thyroid nodule is erin mmended. Reviewed, dictated and finalized at location A. ITECTURE INTERN IMPRESSION: 1. Thyroid nodules. Ultrasound-guided fine-needle aspiration of the 17 mm left thyroid nodule is recommended.
== END 2024-01-28 10:02 | disposition home or self-care (01) ==
PROVIDERS: PCP Internal Medicine Endocrinology, Diabetes & Metabolism; Visit Provider Internal Medicine Endocrinology, Diabetes & Metabolism
DX: E04.2 Nontoxic multinodular goiter (principal); R13.10 Dysphagia, unspecified; R09.A2 Foreign body sensation, throat
CPT/HCPCS: 76536

== ENCOUNTER 2024-02-28 12:12 | Outpatient (CLI) | payer OTHER, SELFPAY ==
--- NOTE | ~2024-02-28 | US_ITS ---
EXAMINATION: US FNA w image guidance DATE: 02/28/2024 13:21 INDICATION: Left thyroid nodule TECHNIQUE: A time-out was performed to verify the patient's name, date of , and procedure to be performed . The procedure and its benefits and risks were discussed with the patient. Risks specifically discus sed included bleeding and infection. The patient understood the risks and agreed to proceed. The neck was prepped and draped in the usual sterile manner. 3 mL 1% lidocaine was used for local anesthesia . 6 passes were made with a 25G needle into the lesion. Appropriate needle location was documented with continuous sonographic guidance. A sterile bandage was applied. There were no immediate compli cations. FINDINGS: Grayscale ultrasound images demonstrate biopsy needles advanced into a 1.5 cm solid TI RADS 4 nodule of concern at the inferior left thyroid. IMPRESSION: 1. Successful ultrasound-guided fine needle aspiration of a 1.5 cm TI RADS 4 left thyroid nodule. Reviewed, dictated and finalized at location A. ERCIAL LOAN ASSISTANT IMPRESSION: 1. Successful ultrasound-guided fine needle aspiration of a 1.5 cm TI RADS 4 l eft thyroid nodule.
--- OUTSIDE RECORDS SUMMARY | 2024-02-29 04:50 | XMS_ITS | Referral Summary ---
Author Organization [facility] Address [address] [place] [address] Care Team Providers Care Bologna Maker Name Role Phone Heydi Ulloa MD Primary Care Provider + Allergies Active Allergy Reactions Criticality Noted Date Comments Ketorolac Tromethamine Unknown 05/21/2014 Metoclopramide Other (See comments) Low 04/24/2018 Muscle spasms Neomycin-Polymyxin B-Dexameth Swelling,Eye irritation,Redness Medium 10/04/2022 Polymyxin B Sulf-Trimethoprim Swelling,Rash,Eye irritation Medium 10/04/2022 Prochlorperazine Other (See comments),Unknown Low 05/21/2014 Muscle spasms MUSCLE SPASMS Sumatriptan Anaphylaxis High Medications multivitamin tabletIndication s:Vitamin Deficiency Prevention Take 1 tablet by mouth nightly Active rizatriptan (MAXALT) 10 mg tabletIndication s:Migraine Take 1 tablet (10 mg total) by mouth once as needed for migraine May repeat in 2 hours if unresolved. Do not exceed 30 mg in 24 hours. Active ondansetron (ZOFRAN) 4 mg tablet Take 1 tablet (4 mg total) by mouth every 12 (twelve) hours as needed for nausea or vomiting Active cholecalciferol (VITAMIN D-3) 2000 unit capsule Take 1 capsule (2,000 Units total) by mouth nightly Active B sdzcefb-X-ihr-Fe -FA 106 mg iron- 1 mg tabletIndication s:Vitamin Deficiency Take 1 tablet by mouth nightly Active aspirin 81 mg enteric coated tabletIndication s:prevention of thrombosis,h/o PE, DVT in ankle Take 1 tablet (81 mg total) by mouth nightly Active metFORMIN (FORTAMET) 500 mg 24 hr tabletIndication s: pre diabetic Take 1 tablet (500 mg total) by mouth nightly Active loteprednol (LOTEMAX) 0.5 % drops,gelIndicat ions:Ocular Inflammation Administer 1 drop into both eyes as needed 3 Active MAGNESIUM GLYCINATE ORAL Take 1 tablet/capsule by mouth nightly Active glucosamine/amy dr charity Arriaga sod (OSTEO BI-FLEX ORAL) Take 1 tablet/capsule by mouth nightly Active erythromycin (ILOTYCIN) ophthalmic ointment Apply to eyelid incisions 3 times a day. Only place ointment in the eyes if they are irritated. 3.5 g 3 3 Active Additional Information Patient not taking.Reported on 03/21/2023 metFORMIN XR (GLUCOPHAGE XR) 500 mg 24 hr tablet TAKE 1 TABLET BY MOUTH ONCE DAILY WITH SUPPER 3 Active artificial tears (SYSTANE) 0.3 % gel Apply to both eyes Active Active Problems Problem Noted Date Diagnosed Date Ptosis, both eyelids 11/24/2022 Uterine prolapse 04/11/2018 Overview (04/11/2018): Added automatically from request for surgery [id number] Vitamin D deficiency disease 03/31/2015 Fatigue 03/31/2015 Abnormal weight gain 03/31/2015 Goiter 03/31/2015 Nontoxic uninodular goiter 06/21/2013 Overview (05/10/2016): NONTOX UNINODULAR GOITER Hypoglycemia 06/21/2013 Overview (05/11/2016): HYPOGLYCEMIA NOS Social History Tobacco Use Types Packs/Day Years Used Date Smoking Tobacco: Never Passive Smoke Exposure: Never Smokeless Tobacco: Never Tobacco Cessation:Counseling Given: Not Answered Alcohol Use Standard Drinks/Week Comments No 0 (1 standard drink = 0.6 oz pur e alcohol) AUDIT-C Answer Date Recorded Q1: How often do you have a drink containing alc ohol? 2-4 times a month 12/25/2022 Q2: How many drinks containi ng alcohol do you have on a typical day when you are drinking? 1 or 2 12/25/2022 Q3: How often do you have si x or more drinks on one occasion? Never 12/25/2022 Personal Safety Answer Date Recorded Have you ever been in or are you currently in a harmful physical or emotional relationship or is someone making you feel afraid or unsafe? Denies 12/25/2022 Comments No Sex and Gender Information Value Date Recorded Sex Assigned at Not on file Legal Sex Female 1:20 AM HARNESS PREPARER Gender Identity Not on file Sexual Orientation Not on file Last Filed Vital Signs Vital Sign Reading Time Taken Comments Blood Pressure 139/88 12/25/2022 2:30 PM HARNESS PREPARER Pulse 79 12/25/2022 2:30 PM HARNESS PREPARER Temperature 36.3 ??C (97.4 ??F) 12/25/2022 10:[address] Respiratory Rate 11 12/25/2022 2:30 PM HARNESS PREPARER Oxygen Saturation 95% 12/25/2022 2:30 PM HARNESS PREPARER Inhaled Oxygen Concentration - - Weight 68.9 kg (152 lb) 12/25/2022 10:52 AM HARNESS PREPARER Height 170.2 cm (5' 7 ) 12/25/2022 10:52 AM HARNESS PREPARER Body Mass Index 23.81 12/25/2022 10:52 AM HARNESS PREPARER Plan of Treatment Not on file Medical Devices Implanted Type Area Histotechnician Device Identifier Shelf Expiration Date Model / Serial / Lot [employer] Robin [id number] Upsylon 35.4cm Elongation Profile Lightweight Large Pore Low - [id number] Implanted:Qty: 1 on 05/07/2018 by Jim Carpenter MD at [facility] Mesh N/A: Pelvis [employer] Robin 03/07/2021 [id number] / / [id number] [employer] Robin [id number] Obtryx Ii Precisionblue Advantage .15mm 22cm Sling Halo Needle - [id number] Implanted:Qty: 1 on 05/07/2018 by Jim Carpenter MD at [facility] N/A: Pelvis [employer] Robin 03/11/2021 [id number] / / [id number] Procedures Procedure Name Priority Date/Time Associated Diagnosis Comments SCREENING MAMMOGRAM BILATERAL W JACOBO Schedule Routine, Read Routine (OP Routine) 09/12/2023 7:17 AM CDT Screening mammogram, encounter for from Last 3 Months or Most Recently Relevant to Health Maintenance Results * Screening Mammogram Bilateral W Jacobo (09/12/2023 7:17 AM CDT) Anatomical Region Laterality Modality Breast Bilateral Mammography Impressions 09/12/2023 8:01 AM CDT BI-RADS?? ATLAS category (overall): 1 - Negative There is no mammographic evidence of malignancy. A 1 year screening mammogram is recommended. The patient has been or will be contacted. We recommend annual screening mammography for women at average risk of breast cancer beginning at age 40, based on guidelines of the [employer] (ACR Practice Parameter for the Performance of Screening and Diagnostic Mammography) and [employer]. For women with and elevated risk of breast cancer, please refer to the ACR Practice Parameter for specific screening recommendations. The patient will be entered into a reminder system with a target due date of 1 year for her next screening exam. Narrative 09/12/2023 8:01 AM CDT Screening Mammogram Bilateral W Jacobo: 09/12/23 The study was acquired using full field digital technology and interpreted from soft copy. 2D digital mammographic views, as well as 3D digital tomosynthesis were performed in the CC and MLO projections. CLINICAL: ??Screening mammogram, encounter for. ??No relevant medical history has been documented for this patient. ??History of breast cancer in Other. COMPARISONS: 07/05/2022 Screening Mammogram Bilateral W Jacobo 12/01/2019 Screening Mammogram Bilateral W Jacobo 10/10/2018 Screening Mammogram Bilateral W Jacobo 05/17/2017 Screening Mammogram Bilateral W Jacobo 05/16/2016 Screening Mammogram 2D Bilateral BREAST TISSUE: The breasts have scattered areas of fibroglandular density. FINDINGS: A biopsy marker clip is unchanged in the left breast. There is no new suspicious finding in either breast on mammogram. ?? us Self Screening Mammogram IMG MAMMO PROCEDURES Fi nal Result from Last 3 Months or Most Recently Relevant to Health Maintenance Insurance [facility] PLUS [facility] HMO/PPO Address: [address] [address] [place] [address] [facility] CHOICE PLUS [facility] HMO/PPO Address: [address] [place] [address] [address] [id number] [facility] CHOICE PLUS [facility] HMO/PPO Address: [facility] [id number] [place] [address] Advance Directives For more information, please contact: [phone] * Full Code (Latest Code Status on File) Date Activated Date Inactivated Comments 05/07/2018 5:40 PM 05/08/2018 10:10 PM Care Teams Bologna Maker Relationship Specialty Start Date End Date Heydi Ulloa MD [address] [place] [address] [address] [place] [id number] PCP - General Family Medicine 03/28/22
--- OUTSIDE RECORDS SUMMARY | 2024-02-29 04:50 | XMS_ITS | Clinical Summary ---
Author Organization [facility] Address [address] [place] [address] Care Team Providers Care Willow Analyst Name Role Phone Heydi Ulloa MD Primary [...] Units total) by mouth nightly Active B dxjibiu-O-umv-Fe -FA 106 mg iron- 1 mg tabletIndication [...] (04/11/2018): Added automatically from request for surgery [id number] Vitamin D deficiency disease 03/31/2015 Fatigue 03/31/2015 Abnormal weight gain 03/31/2015 Goiter 03/31/2015 Nontoxic uninodular goiter 06/21/2013 Overview (05/10/2016): NONTOX UNINODULAR GOITER Hypoglycemia 06/21/2013 Overview (05/11/2016): HYPOGLYCEMIA NOS Surgical History Surgery Date Site/Laterality Comments HYSTERECTOMY Hysterectomy/age 37 TONSILLECTOMY Tonsillectomy as child SINUS SURGERY BREAST BIOPSY Left benign BLADDER SURGERY 02/05/2019 - 02/05/2020 TARSAL TUNNEL RELEASE 02/05/2018 - 02/04/2019 Right CARPAL TUNNEL RELEASE Right ay mhb COLONOSCOPY BLEPHAROPTOSIS REPAIR 12/25/2022 Bilateral BLEPHAROPTOSIS REPAIR 12/25/2022 Bilateral Medical History Medical History Date Comments Disorder of thyroid Thyroid dise ase Migraines Diabetes mellitus (HCC) Hemifacial spasm of left side of face PONV (postoperative nausea and vomiting) consider pre-medication Type 2 diabetes mellitus (HCC) Hyperthyroidism Family History Medical History Relation Name Comments Heart attack Father Deep vein thrombosis Maternal Grandmother Stroke Maternal Grandmother Deep vein thrombosis Mother Factor V Leiden Mother Heart attack Mother Stroke Mother Deep vein thrombosis Mother's Sister Breast cancer Other Family history of Cancer -breast; Deep vein thrombosis Paternal Grandmother Factor V Leiden Sister Anesthesia problems Neg Hx Relation Name Status Comments Father Maternal Grandmother Mother Mother's Sister Other Paternal Grandmother Sister Social History Tobacco Use Types Packs/Day Years [...] on file Legal Sex Female 1:20 AM SALES & SERVICE ASSOCIATE Gender Identity Not on file Sexual Orientation Not on file Obstetrics History Para Term AB IAB SAB Ectopic Multiple Livin g Live Births 2 2 2 Date Outcome GA Total Labor Labor/2nd/3rd Weight Sex Type Anes PTL Elizabeth A1 A5 Name Clin Term Term Last Filed Vital Signs Vital Sign Reading Time Taken Comments Blood Pressure 139/88 12/25/2022 2:30 PM SALES & SERVICE ASSOCIATE Pulse 79 12/25/2022 2:30 PM SALES & SERVICE ASSOCIATE Temperature 36.3 ??C (97.4 ??F) 12/25/2022 10:[address] Respiratory Rate 11 12/25/2022 2:30 PM SALES & SERVICE ASSOCIATE Oxygen Saturation 95% 12/25/2022 2:30 PM SALES & SERVICE ASSOCIATE Inhaled Oxygen Concentration - - Weight 68.9 kg (152 lb) 12/25/2022 10:52 AM SALES & SERVICE ASSOCIATE Height 170.2 cm (5' 7 ) 12/25/2022 10:52 AM SALES & SERVICE ASSOCIATE Body Mass Index 23.81 12/25/2022 10:52 AM SALES & SERVICE ASSOCIATE Plan of Treatment Health Maintenance Due Date Last Done Comments Colon Cancer Screening-Colonoscopy 1960 Hepatitis C Screening 1960 DTaP/Tdap/Td Vaccine (1 - Tdap) 02/08/1971 Hepatitis B Screening 02/08/1978 Regular Well Visit/Exam 18-64 02/08/1978 Zoster Vaccine (1 of 2) 02/08/2010 Depression Screening 04/12/2019 04/11/2018 Influenza Vaccine (#1) 2023 12/06/2020 Breast Cancer Screening-Mammogram 09/11/2024 09/12/2023, 07/05/2022, 12/01/2019, Additional history exists Pneumococcal vaccine <65 Aged Out No longer eligible based on patient's age to complete this topic Medical Devices Implanted Type Area Manager Style Device Identifier Shelf Expiration Date Model / Serial / Lot [employer] Robin [id number] Upsylon 35.4cm Elongation Profile Lightweight Large Pore Low - [id number] Implanted:Qty: 1 on 05/07/2018 by Jim Carpenter MD at [facility] Mesh N/A: Pelvis [employer] Robin 03/07/2021 [id number] / / [id number] [employer] Robin [id number] Obtryx Ii Precisionblue Advantage .15mm 22cm Sling Halo Needle - [id number] Implanted:Qty: 1 on 05/07/2018 by Jim Carpenter MD at [facility] N/A: Pelvis [employer] Robin 03/11/2021 [id number] / / [id number] Procedures Procedure Name Priority Date/Time Associated Diagnosis Comments SCREENING MAMMOGRAM BILATERAL W AURELIO Schedule Routine, Read Routine (OP Routine) 09/12/2023 7:17 AM CDT Screening mammogram, encounter for from Last 3 Months or Most Recently Relevant to Health Maintenance Results * Screening Mammogram Bilateral W Aurelio (09/12/2023 7:17 AM CDT) Anatomical Region Laterality [...] age 40, based on guidelines of the [employer] [employer] (ACR Practice Parameter for the Performance of Screening and Diagnostic Mammography) and [employer]. For women with and elevated risk of breast cancer, please refer to the ACR Practice Parameter for specific screening recommendations. The patient will be entered into a reminder system with a target due date of 1 year for her next screening exam. Narrative 09/12/2023 8:01 AM CDT Screening Mammogram Bilateral W Aurelio: 09/12/23 The study was acquired using full field digital technology and interpreted from soft copy. 2D digital mammographic views, as well as 3D digital tomosynthesis were performed in the CC and MLO projections. CLINICAL: ??Screening mammogram, encounter for. ??No relevant medical history has been documented for this patient. ??History of breast cancer in Other. COMPARISONS: 07/05/2022 Screening Mammogram Bilateral W Aurelio 12/01/2019 Screening Mammogram Bilateral W Aurelio 10/10/2018 Screening Mammogram Bilateral W Aurelio 05/17/2017 Screening Mammogram Bilateral W Aurelio 05/16/2016 Screening Mammogram 2D Bilateral BREAST TISSUE: The breasts have scattered areas of fibroglandular density. FINDINGS: A biopsy marker clip is unchanged in the left breast. There is no new suspicious finding in either breast on mammogram. ?? us Self Screening Mammogram IMG MAMMO PROCEDURES Fi nal Result from Last 3 Months or Most Recently Relevant to Health Maintenance Insurance [facility] CHOICE PLUS Advance Directives For more information, please contact: [phone] * Full Code (Latest Code Status on File) Date Activated Date Inactivated Comments 05/07/2018 5:40 PM 05/08/2018 10:10 PM Care Teams Willow Analyst Relationship Specialty Start Date End Date Heydi Ulloa MD [address] [place] [id number] PCP - General Family Medicine 03/28/22
--- OUTSIDE RECORDS SUMMARY | 2024-02-29 04:50 | XMS_ITS | Clinical Summary ---
Author Organization [facility] Address [address] [place] [address] Phone Care Team Providers Care Fuel Pilot Engineer Name Role Phone Addison Lopez MD Primary Care Provider [phone] Allergies Active Allergy Reactions Criticality Noted Date Comments Metoclopramide Other (See Comments) Low 05/21/2014 Muscle spasms Medications rizatriptan (MAXALT) 10 mg Tablet Take 10 mg by mouth every 2 hours as needed for Migraine may repeat in 2 hours; max dose 30mg in 24 hours . Active Active Problems Problem Noted Date Diagnosed Date Dyspnea on exertion 02/28/2019 Chest pain 02/28/2019 Palpitations 02/28/2019 SVT (supraventricular tachycardia) 02/28/2019 Abnormal thyroid blood test 11/10/2016 Multiple thyroid nodules 11/10/2016 Abnormal glucose 11/10/2016 Family history of early CAD 11/10/2016 Overview (11/10/2016): Father had his first OR age 33 Menopause 11/10/2016 Family History Medical History Relation Name Comments Heart Disease Father Thyroid Disease Father Heart Disease Mother Other Mother Parkinsons Thyroid Disease Mother Relation Name Status Comments Father Mother Alive Social History Tobacco Use Types Packs/Day Years Used Date Smoking Tobacco: Never Smokeless Tobacco: Never Alcohol Use Standard Drinks/Week Comments No 0 (1 standard drink = 0.6 oz pur e alcohol) Comments Unknown Sex and Gender Information Value Date Recorded Sex Assigned at Not on file Legal Sex Female 2:46 AM SURVEILLANCE SYSTEM MONITOR Gender Identity Not on file Sexual Orientation Not on file Last Filed Vital Signs Vital Sign Reading Time Taken Comments Blood Pressure 124/86 02/28/2019 12:47 PM SURVEILLANCE SYSTEM MONITOR Pulse 74 02/28/2019 12:47 PM SURVEILLANCE SYSTEM MONITOR Temperature - - Respiratory Rate - - Oxygen Saturation - - Inhaled Oxygen Concentration - - Weight 74.5 kg (164 lb 3.2 oz) 02/28/2019 12:47 PM SURVEILLANCE SYSTEM MONITOR Height 170.2 cm (5' 7 ) 02/28/2019 12:47 PM SURVEILLANCE SYSTEM MONITOR Body Mass Index 25.72 02/28/2019 12:47 PM SURVEILLANCE SYSTEM MONITOR Plan of Treatment Health Maintenance Due Date Last Done Comments DTAP/TDAP/TD VACCINES (1 - Tdap) 02/08/1979 CERVICAL CANCER SCREENING 02/08/1990 BREAST CANCER SCREENING 2000 COLORECTAL SCREENING 02/08/2005 Colorectal Cancer Screening 02/08/2005 FIT-DNA Q 3 years 02/08/2005 FIT/FOBT Q 1 year 02/08/2005 Flex Sig/CT Colonography Q 5 years 02/08/2005 ZOSTER VACCINE (1 of 2) 02/08/2010 INFLUENZA VACCINE (#1) 2023 RSV VACCINE (60+ or ) (1 - 1-dose 75+ series) 02/08/2035 PNEUMOCOCCAL VACCINE 0-64 YEARS Aged Out No longer eligible based on patient's age to complete this topic Insurance Care Teams Fuel Pilot Engineer Relationship Specialty Start Date End Date Addison Lopez MD [address] [place] [id number] PCP - General Family Practice 11/10/16
--- OUTSIDE RECORDS SUMMARY | 2024-02-29 04:50 | XMS_ITS | Encounter Summary ---
Author Organization [facility] Care Team Providers Care Assemblyman Or Woman Name Role Phone Addison Lopez MD Primary Care Provider + Suzanna Walden MD Primary Care Provider Heydi Ulloa MD Primary Care Provider + Encounter Details Date Type Department Care Team (Latest Contact Info) Description 04/08/2015 Orders Only [facility]INCON[facility] ProviderBrooks MD [address] [place] [id number] Social History Tobacco Use Types Packs/Day Years Used Date Smoking Tobacco: Never Assessed Alcohol Use Standard Drinks/Week Comments No 0 (1 standard drink = 0.6 oz pur e alcohol) Comments Unknown Sex and Gender Information Value Date Recorded Sex Assigned at Not on file Legal Sex Female 1:20 AM HEEL CEMENTER MACHINE Gender Identity Not on file Sexual Orientation Not on file documented as of this encounter Plan of Treatment Not on file documented as of this encounter Procedures Procedure Name Priority Date/Time Associated Diagnosis Comments PROCEDURE - RESULT 04/08/2015 12 :00 AM HEEL CEMENTER MACHINE documented in this encounter Results * PROCEDURE - RESULT (04/08/2015 12:00 AM HEEL CEMENTER MACHINE) Narrative 04/08/2015 12:00 AM HEEL CEMENTER MACHINE Ordered by an unspecified provider. Historical Provider Final Res ult documented in this encounter Visit Diagnoses Not on filedocumented in this encounter Care Teams Assemblyman Or Woman Relationship Specialty Start Date End Date Addison Lopez MD PCP - General 06/09/09 05/09/21 Suzanna Walden MD PCP - General Obstetrics and Gynecology 05/10/2103/09 Heydi Ulloa MD [address] [place] [address] [address] PCP - General Family Medicine 03/28/22 documented as of this encounter
--- OUTSIDE RECORDS SUMMARY | 2024-02-29 04:50 | XMS_ITS | Clinical Summary ---
Author Organization [facility] Address [address] [place] [address]. [place] [address] Care Team Providers Care Unscrambler Name Role Phone Unavailable Primary Care Provider Unavailabl e Social History Tobacco Use Types Packs/Day Years Used Date Smoking Tobacco: Never Assessed Comments Unknown Sex and Gender Information Value Date Recorded Sex Assigned at Not on file Legal Sex Female 11:35 PM CDT Gender Identity Not on file Sexual Orientation Not on file Plan of Treatment Health Maintenance Due Date Last Done Comments Cervical Cancer Screening Pa p Smear (Age 30 to 64) Every 3 Years 1960 Colorectal Cancer Screening Colonoscopy (10 Years) 1960 Annual Physical 02/08/1963 Hepatitis C 02/08/1978 DTaP, Tdap and Td Vaccines ( 1 - Tdap) 02/08/1979 Cervical Cancer Screening Pa p with HPV Testing (Age 30 to 64) Every 5 Years 02/08/1990 Cervical Cancer Screening with HPV 02/08/1990 Mammogram Screening 2000 Zoster Vaccines (1 of 2) 02/08/2010 COVID-19 Vaccine (2023-2 5 season) 2023 Influenza Adult (#1) 2023 RSV Immunization or 60+ Years (1 - 1-dose 75+ series) 02/08/2035 Meningococcal B Vaccine Aged Out No l onger eligible based on patient's age to complete this topic Meningococcal Vaccine Aged Out No akash tunde eligible based on patient's age to complete this topic Pneumococcal Vaccine: Pediat rics (0 to 5 Years) and At-Risk Patients (6 to 64 Years) Aged Out No longer eligible b ased on patient's age to complete this topic RSV Immunizations Under 20 Months Aged Out No longer eligible based on patient's age to complete this topic
--- OUTSIDE RECORDS SUMMARY | 2024-02-29 04:50 | XMS_ITS | Clinical Summary ---
Author Organization [facility] Address [address] [place] [address] Phone Care Team Providers Care Montessori Toddler Teacher Name Role Phone Ara Jain MD Primary Care Provider [phone] Marko Myrick MD Unavailable [phone] Allergies Active Allergy Reactions Criticality Noted Date Comments Prochlorperazine Unknown 05/08/2022 Medications metFORMIN (GLUCOPHAGE-XR) 500 MG TABLET SR 24 HR TAKE 1 TABLET BY MOUTH ONCE DAILY WITH SUPPER FOR 90 DAYS 04/13/2022 Active Progesterone (PROMETRIUM) 100 MG Capsule 02/21/2022 Active aspirin EC 81 MG Tablet Delayed Response Take 81 mg by mouth daily. Active B Complex Vitamins (VITAMIN B COMPLEX PO) Take by mouth. Active [place]wellia-Glucos amine-Vit D (OSTEO BI-FLEX ONE PER DAY PO) Take by mouth. Active Cholecalciferol (VITAMIN D-3 PO) Take by mouth. Active MAGNESIUM GLYCINATE PO Take by mouth. Active Family History Medical History Relation Name Comments Heart Attack Father Dementia Maternal Grandmother Parkinsonism Mother Stroke Mother Relation Name Status Comments Father Maternal Grandmother Mother Social History Tobacco Use Types Packs/Day Years Used Date Smoking Tobacco: Never Passive Smoke Exposure: Never Smokeless Tobacco: Never Alcohol Use Standard Drinks/Week Comments Not Currently 0 (1 standard drink = 0.6 oz pur e alcohol) Comments Unknown Sex and Gender Information Value Date Recorded Sex Assigned at Not on file Legal Sex Female 3:50 PM CDT Gender Identity Not on file Sexual Orientation Not on file Last Filed Vital Signs Vital Sign Reading Time Taken Comments Blood Pressure 122/74 05/08/2022 9:06 AM CDT Pulse 78 05/08/2022 9:06 AM CDT Temperature 35.8 ??C (96.4 ??F) 05/08/2022 9:06 AM CD T Respiratory Rate 14 05/08/2022 9:06 AM CDT Oxygen Saturation 98% 05/08/2022 9:06 AM CDT Inhaled Oxygen Concentration - - Weight 72.1 kg (159 lb) 05/08/2022 9:06 AM CDT Height 170.2 cm (5' 7 ) 05/08/2022 9:06 AM CDT Body Mass Index 24.9 05/08/2022 9:06 AM CDT Plan of Treatment Health Maintenance Due Date Last Done Comments Hepatitis C Virus (HCV) Screening 1960 TdaP Immunization 1960 Pap Smear 02/08/1981 Cervical Cancer Screening (CCS) 02/08/1990 HPV/Cotest 02/08/1990 Colonoscopy 02/08/2005 Colorectal Cancer Screening 02/08/2005 Cologuard 02/08/2010 Immunochemical Fecal Occult Blood 02/08/2010 Mammogram 02/08/2010 Pneumococcal Immunization (5 0+ years) (1 of 1 - PCV) 02/08/2010 Zoster Immunization (1 of 2) 02/08/2010 Influenza Immunization (#1) 2023 12/06/2020 SARS-COV-2 Immunization (1 - 2023-25 season) 2023 Respiratory Syncytial Virus (RSV) Immunization (Adult) (1 - 1-dose 75+ series) 02/08/2035 Hepatitis B Immunization Aged Out No longer eligible based on patient's age to complete this topic Meningococcal Immunization (ACWY) Aged Out No longer eligible based on patient's age to complete this topic Pneumococcal Immunization Combined Aged Out No longer eligible based on patient's age to complete this topic Rotavirus Immunization Aged Out No lo nger eligible based on patient's age to complete this topic Insurance [facility] Care Teams Montessori Toddler Teacher Relationship Specialty Start Date End Date Ara Jain MD [address] [facility] [address] [place] [address] PCP - General Endocrinology 05/08/22 Marko Myrick MD [address] [place] [id number] Consulting Physician Neurology 05/08/22
== END 2024-02-28 12:13 | disposition home or self-care (01) ==
PROVIDERS: PCP Internal Medicine Endocrinology, Diabetes & Metabolism; Visit Provider Internal Medicine Endocrinology, Diabetes & Metabolism
DX: E04.1 Nontoxic single thyroid nodule (principal)
CPT/HCPCS: 10005; 88172; 88173; 88305

== ENCOUNTER 2024-12-31 08:13 | Outpatient (CLI) | payer OTHER, SELFPAY ==
--- NOTE | ~2024-12-31 | DEXA_ITS ---
Bone Density Report Name: HOMAR QUINTANA Age: 64 Sex: Female Ethnicity: White Date of : 1960 Indication: postmenopausal; screening for osteoporosis; height loss; hysterectomy; Referring Provider: Crystal Flores Study: Bone densitometry was performed. Exam Date: December 31, 2024 Accession number: [id number] Bone Density: Region BMD T-score Z-score Classification AP Spine(L1-L4) 0.831 -2.0 -0.2 Osteopenia Femoral Neck (Left) 0.668 -1.6 -0.1 Osteopenia Total Hip (Left) 0.731 -1.7 -0.5 Osteopenia Femoral Neck (Right) 0.705 -1.3 0.2 Osteopenia Total Hip (Right) 0.786 -1.3 -0.1 Osteopenia Total Hip Mean 0.759 -1.5 -0.3 Osteopenia World Health Organization criteria for BMD impression classify patients as: Normal (T-score at or above -1.0), Osteopenia (T-score between -1.0 and -2.5), or Osteoporosis (T-score at or below -2.5). 10-year Fracture Risk(1): Major Osteoporotic Fracture 9.3% Hip Fracture 1.1% Reported Risk Factors: [place] (), Neck BMD=0.668, BMI=25.0 (1) FRAX(R) Version 3.08. Fracture probability calculated for an untreated patient. Fracture probability may be lower if the patient has received treatment. Clinical Information Provided by Patient: Has used the following medications: Vitamin D Has the following medical conditions: Hysterectomy Patient maximum height was 66 Menopause Age: 52 Does not regularly consume dairy products Drinks caffeinated beverages Onset of menses at age 10 Number of children 2 Impression: The patient has low bone mass, based on the Total Spine T-score. The patient has an estimated ten-year risk of hip fracture of 1.1% and an estimated ten-year risk of major fracture of 9.3%, based on the WHO FRAX algorithm. Discussion: BONE DENSITY IS LOW AT ONE OR MORE SKELETAL SITES. This patient's lowest T-score is low at one or more skeletal sites. It meets the World Health Organization's (WHO) criteria for ?low bone mass? (T-score between -1.0 and -2.5). The patient's 10-year risk of fracture as calculated by FRAX is less than the threshold where pharmacological therapy is recommended by the National Osteoporosis Foundation (NOF). However, all treatment decisions require clinical judgment and consideration of individual patient factors, including patient preferences, comorbidities, previous drug use, risk factors not captured in the FRAX model (e.g., frailty, falls, vitamin D deficiency, increased bone turnover, interval significant decline in bone density) and possible under or overestimation of fracture risk by FRAX. The patient should follow a healthful lifestyle (good nutrition with adequate calcium and vitamin D, and appropriate weight-bearing exercise). Follow-Up: Consider repeating this study in 2 to 3 years to reassess this patient's status, or sooner if there is some new clinical indication. Reported by: JAKOB on 12/31/2024 8:34:00 AM. Reviewed, dictated and finalized at location A.
== END 2024-12-31 08:14 | disposition home or self-care (01) ==
PROVIDERS: PCP Internal Medicine Endocrinology, Diabetes & Metabolism; Visit Provider Internal Medicine Endocrinology, Diabetes & Metabolism
DX: M85.89 Other specified disorders of bone density and structure, multiple sites (principal); Z78.0 Asymptomatic menopausal state
CPT/HCPCS: 77080